=== PATIENT | male | born 1960 | race African-American/Black ===

== ENCOUNTER 2025-01-04 13:22 | Emergency (ER) | payer MEDICARE ==
[2025-01-04] MEDS ORDERED: Iopamidol 370 76% 100 ML VIAL ONE (13:26)
[2025-01-04 14:02] LABS: #Basophils 0.05 10x3/uL (0.0-0.2); #Eosinophils 0.57 10x3/uL (0.0-0.5); #Monocytes 0.54 10x3/uL (0.0-1.1); #Neutrophils 2.01 10x3/uL (1.5-8.4); %Basophils 0.9 % (0.0-2.0); %Eosinophils 10.2 % (0.0-6.0); %Lymphocytes 43.2 % (18.0-47.0); %Monocytes 9.6 % (0.0-10.0); %Neutrophils 35.9 % (40.0-75.0); Hematocrit 43.7 % (38.8-50.0); Hemoglobin 14.0 g/dL (13.5-17.5); Mean Corpuscular Hemoglobin 28.7 pg (27.0-33.0); Mean Corpuscular Volume 89.7 fL (81.2-95.1); Platelet Count 218 10x3/uL (150-450); Red Blood Cell (RBC) Count 4.87 10x6/uL (4.32-5.72); White Blood Cell (WBC) Count 5.60 10x3/uL (3.5-10.5)
[2025-01-04 14:20] LABS: ALT (SGPT) 18 U/L (Less than 45); AST (SGOT) 19 U/L (11-34); Albumin 4.2 g/dL (3.1-4.5); Alkaline Phosphatase 46 U/L (40-110); Anion Gap 12 mmol/L (10-20); BUN (Urea Nitrogen) 15 mg/dL (8.4-25.7); Bilirubin, Total 0.4 mg/dL (0.3-1.2); Calc. Creatinine Clearance 0 mL/min (70-130); Calcium 9.8 mg/dL (7.8-10.44); Carbon Dioxide 31 mmol/L (23-31); Chloride 100 mmol/L (98-107); Globulin 3.5 g/dL (2.4-3.5); Glucose 101 mg/dL (80-115); Potassium 3.9 mmol/L (3.5-5.1); Sodium 139 mmol/L (136-145)
[2025-01-04 14:23] LABS: Troponin I Less than 0.010 ng/mL (< 0.028)
[2025-01-04 15:37] LABS: INR-International Normal Ratio 1.0; PTT 26.5 sec (22.0-33.0); Prothrombin Time 10.9 sec (9.5-12.1)
== END 2025-01-04 17:17 | disposition home or self-care (01) ==
LOC: CSHERS 13:22
DX: J32.9 Chronic sinusitis, unspecified (principal); I10 Essential (primary) hypertension; E11.9 Type 2 diabetes mellitus without complications; Z87.891 Personal history of nicotine dependence
CPT/HCPCS: 71046; 71275; 80053; 83880; 84484; 85025; 85610; 85730; 87426; 93005; 93970; 96374; J2919; J7620; Q9967

== ENCOUNTER 2025-01-31 12:41 | Outpatient (CLI) | payer MEDICARE | END 2025-01-31 12:42 | disposition home or self-care (01) | LOC: CSHCT 12:41 | PROVIDERS: ATTEND Internal Medicine | DX: R06.09 Other forms of dyspnea (principal); J45.909 Unspecified asthma, uncomplicated | CPT/HCPCS: 71250; 94060; 94618; 94664; 94726; 94729 ==

== ENCOUNTER 2025-03-16 08:39 | Outpatient (CLI) | payer MEDICARE | END 2025-03-16 08:40 | disposition home or self-care (01) | LOC: CSHSLEEP 08:39 | PROVIDERS: ATTEND Otolaryngology Plastic Surgery within the Head & Neck | DX: G47.33 Obstructive sleep apnea (adult) (pediatric) (principal); R53.83 Other fatigue | CPT/HCPCS: 95800 ==

== ENCOUNTER 2025-06-25 10:22 | Outpatient (CLI) | payer MEDICARE | END 2025-06-25 10:23 | disposition home or self-care (01) | LOC: CSHSLEEP 10:22 | PROVIDERS: ATTEND Otolaryngology Plastic Surgery within the Head & Neck | DX: G47.33 Obstructive sleep apnea (adult) (pediatric) (principal); R53.83 Other fatigue; G47.61 Periodic limb movement disorder | CPT/HCPCS: 95811 ==